=== PATIENT | female | born 1965 | race African-American/Black ===

== ENCOUNTER 2020-01-03 15:42 | Emergency (ER) | payer SELFPAY ==
[~2020-01-03] VITALS: Ht 165.1 cm; Wt 70.0 kg
[2020-01-03 18:25] VITALS: BP 150/85
== END 2020-01-03 18:26 | disposition home or self-care (01) ==
LOC: ER 15:42
DX: N63.15 Unspecified lump in the right breast, overlapping quadrants (principal); I10 Essential (primary) hypertension; Z88.3 Allergy status to other anti-infective agents; Z98.890 Other specified postprocedural states
CPT/HCPCS: 71045; 76642; 99284